=== PATIENT | female | born 1945 | race Caucasian/White ===

== ENCOUNTER 2016-04-15 01:14 | Day surgery (SDC) | payer MEDICARE, OTHER ==
[2016-04-11 14:03] VITALS: BP 129/73
[2016-04-11 15:03] LABS: BASOPHIL % 0.6 % (0.0-0.2); EOSINOPHIL # 0.3 10^3/uL (0.0-0.2); LYMPHOCYTES # 2.3 10^3/uL (1.0-4.8); LYMPHOCYTES % 31.4 % (24.0-44.0); MEAN CELL HGB 29.3 pg (26-34); MEAN CELL HGB CONCENTRATION 32.2 g/dL (33-37); MEAN CORP VOLUME 91.2 fL (78-100); MEAN PLATELET VOLUME 9.1 fL (7.8-11.0); MONOCYTES # 0.7 10^3/uL (0.3-0.8); MONOCYTES % 9.7 % (5.0-12.0); NEUTROPHIL # 3.9 10^3/uL (1.8-7.7); RED CELL DISTRIBUTION WIDTH 12.9 % (11.5-14.5); WHITE BLOOD CELL 7.3 10^3/uL (4.5-11.0)
[2016-04-11 15:16] LABS: CALCIUM 8.4 mg/dL (8.4-10.5); CARBON DIOXIDE 25.9 mmol/L (20.0-32); GLUCOSE 127 mg/dL (70-110)
--- NOTE | 2016-04-11 15:35 | DIREP ---
PROCEDURE:CHEST 2 VIEWS COMPARISON:None. INDICATIONS:PRE-OP HEART CATH FINDINGS: LUNGS/PLEURA:No significant pulmonary parenchymal abnormalities. No effusions. VASCULATURE:Normal. Unremarkable pulmonary vasculature. CARDIAC:Normal. No cardiac silhouette abnormality or cardiomegaly. MEDIASTINUM:Normal. No visible mass or adenopathy. BONES:Mild spondylosis of the thoracic spine OTHER:Negative. CONCLUSION:Normal examination. Dictated by: Jazmin Rojo M.D. on 04/11/2016 at 02:58 PM
[~2016-04-15] VITALS: Ht 152.4 cm; Wt 68.0 kg
[2016-04-15] VITALS (14 sets, daily range): BP systolic 140–163; BP diastolic 64–88
[~2016-04-15 01:14] MED LIST: ASCO500S2 PO; CITA20TA9 PO; GARL500C PO; LOSA50TA6 PO; ONDA4TAB10 SL; THYR130T2 PO; TURM500C9 PO; VIT1CAPS7 PO; [UNRECOGNIZED DRUG - CODE] PO
[2016-04-15] MEDS ORDERED: BENADRYL PO ONE ×2 (06:00→07:50)
[2016-04-15] MEDS ORDERED: NITROGLYCERIN 25MG/D5W 250ML 250 ML IV ONE (06:55)
[2016-04-15] MEDS ORDERED: LIDOCAINE 2% VIAL ONE (06:55)
[2016-04-15] MEDS ORDERED: CALAN ONE (06:55)
[2016-04-15] MEDS ORDERED: HEPARIN ONE (08:28)
[2016-04-15] MEDS ORDERED: SUBLIMAZE ONE (08:28)
[2016-04-15] MEDS ORDERED: NS 1000ML 1,000 ML ONE (08:29)
[2016-04-15] MEDS ORDERED: VERSED ONE (08:29)
[2016-04-15] MEDS ORDERED: SOLU-MEDROL ONE (08:36)
[2016-04-15] MEDS ORDERED: BENADRYL ONE (08:36)
[2016-04-15] MEDS ORDERED: NS 1000ML 1,000 ML IV SCH (09:19)
[2016-04-15] MEDS ORDERED: NORCO 5MG PO PRN (09:30)
--- NOTE | 2016-04-15 14:46 | [facility] ---
DATE OF SERVICE: 04/15/2016 PROCEDURES PERFORMED: 1. Left heart catheterization via right radial artery access. 2. Selective coronary angiography, left and right. 3. Left ventricular end diastolic pressure measurement. 4. Left ventriculography. COMPLICATIONS: None. BLOOD LOSS: Minimal, less than 20 mL. INDICATIONS AND PREOPERATIVE DIAGNOSES: 1. Severe LV dysfunction. 2. Class 2-3 angina. 3. Abnormal stress test performed on 04/10/2016 4. Moderate to severe MR. HISTORY OF PRESENT ILLNESS: The patient is a 71-year-old lady with history of hypertension and hyperlipidemia, developed new onset chest pain and worsening shortness of breath. She is known to have a mild degree of mitral regurgitation. Further examination with an echocardiogram showed worsening MR and LV dysfunction, estimated by echo to be around 30-35%. A stress test was performed on 04/10/2016 for worsening shortness of breath to rule out any ischemic component for the symptoms, which was abnormal with findings of transient ischemic dilatation, large anteroapical and anteroseptal perfusion defects with reversibility and LV dysfunction, estimated around 30% by nuclear gated function study. The patient's symptoms of worsening shortness of breath, angina pectoris, abnormal stress test and worsening MR required further examination with coronary angiography and possible intervention. DESCRIPTION OF PROCEDURE: Therefore, the patient presented to the Nurse Care Manager in a fasting condition on 04/15/2016, a proper consent was obtained and explained. All risks and benefits explained and lab results were reviewed. The patient was brought into the Nurse Care Manager in a fasting condition. Right wrist area was prepped and draped and sterilized followed by advancing a 6-Vincentian sheath in the right radial artery after 1% local analgesia with lidocaine. A 6-Vincentian [place] catheter was utilized to engage the left coronary system and JR4 guiding catheter was the guide of choice to engage the right coronary artery followed by advancing a pigtail catheter into LV cavity for left ventricular end diastolic pressure measurement and power injection LV gram in the OBRIEN projection. Careful examination of coronary angiography showed no evidence of any obstructive coronary artery lesion. At this point, the case was concluded with removal of the wires and catheters and application of TR band in the right radial artery access site for hemostasis. I have discussed the finding with the patient in details and explained all the findings to the patient and the family members in the waiting room. The patient left the Nurse Care Manager in a stable condition without any complications. HEMODYNAMICS: 1. Central aortic pressure was 176/76, mean of 118 mmHg. 2. Left ventricular end diastolic pressure was around 15 mmHg. 3. Left ventriculography showed an EF of 40% with global hypokinesia. 4. +2 to +3 MR noted. 5. There is a gradient of less than 5 mmHg across the aortic valve on pullback of the pigtail catheter. 6. Ascending aorta was tortuous, free of any acute pathology. ANGIOGRAPHIC FINDINGS: 1. Left main is a normal vessel, minimally calcified, free of disease, normal in length and diameter, bifurcates to left anterior descending artery and left circumflex artery. 2. The left anterior descending artery is a tortuous vessel, proximally free of disease. The mid segment and distal segments are small size vessel, no obstructive disease noted. The first and second and third diagonal branches are small, tortuous vessels without significant disease. 3. The circumflex artery is small, nondominant vessel with small size obtuse marginal branches. No obstructive lesion noted in the circumflex artery territory. 4. The right coronary artery is a very tortuous super dominant vessel, free of disease without obstructive lesion noted. The vessel bifurcates distally to a large size, tortuous, dominant RPDA and PLV branches. Multiple small acute marginal branches of the RCA were noted, the AV norma branch and the conus branch were medium size vessel, tortuous without significant disease. IMPRESSION: 1. Normal left main. 2. Normal LAD, medium size vessel. 3. Small nondominant circumflex artery. 4. Large, dominant, free of disease, RCA. 5. LV dysfunction, moderate in severity, EF around 40%. 6. +2 MR. 7. Normal LVEDP. 8. Minimal gradient across the aortic valve, nonpathological. 9. Well tolerated procedure without complication. RECOMMENDATIONS: 1. TR band protocol. 2. Same day discharge. 3. Optimize medical management for systolic heart failure, medical management for a valvular heart condition of mitral regurgitation. 4. Outpatient followup in 1-2 weeks. Ritu Arevalo MD DR: MARK/ibeth JOB# [id number]
[2016-04-16] MEDS ORDERED: ASPIRIN EC PO SCH (09:00)
== END 2016-04-15 12:45 | disposition home or self-care (01) ==
LOC: SDC 01:14
PROVIDERS: ATTEND Internal Medicine
DX: I20.9 Angina pectoris, unspecified (principal); I34.0 Nonrheumatic mitral (valve) insufficiency; I73.9 Peripheral vascular disease, unspecified; I10 Essential (primary) hypertension; E78.2 Mixed hyperlipidemia; I50.1 Left ventricular failure, unspecified; I50.22 Chronic systolic (congestive) heart failure
CPT/HCPCS: 36415; 71020; 80048; 85025; 85610; 93458; C1769; C1887; C1894 ×2; J1200; J1644 ×2; J2001; J2250; J2930; J3010; J3490 ×2; J7030; Q0163; Q9967

== ENCOUNTER → 2017-04-01 | Outpatient (CLI) | payer MEDICARE, OTHER ==
--- NOTE | 2017-04-03 10:08 | ECHO ---
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 FINDINGS: 1. Study quality was fair. 2. Underlying rhythm is sinus rhythm with bundle branch block. 3. Overall, EF is depressed. EF 30-35%. Inferior wall was akinetic. Septal wall was dyskinetic. The LV cavity was dilated. End-diastolic dimension was 6.3 cm. 4. Right ventricular size is increased, right ventricular EF is around 40%. 5. Both atria showed mild dilatation. 6. Thickened interatrial septum. 7. Normal septal thickness, no LVOT obstruction. 8. Mitral valve showed mild degree of mitral valve prolapse. The examination of the Doppler signal showed E to A reversal of grade 1 diastolic dysfunction. Mitral valve gradient was 2 mmHg. Therefore, no stenosis. The prolapse caused mild degree of insufficiency. 9. Aortic valve is calcified. The examination with Doppler across the valve showed a mean velocity of 1.2 m/sec, aortic valve area was 2 cm2 early stenosis with calcification is identified. 10. Mild tricuspid regurgitation. 11. No pericardial effusion. 12. Inferior vena cava was normal in size at 1.1 cm. IMPRESSION: 1. LV dysfunction, [id number]. EF was around 30-35% with dilated LV cavity LVH and global and segmental wall motion abnormality. 2. RV size with normal RVEF is mildly depressed around 45%. 2. Moderate dilatation of both atria. 3. Thickened interatrial septum. 4. Mitral valve prolapse with mild insufficiency, no stenosis. 5. Grade 1 diastolic dysfunction was seen. 6. Aortic stenosis and calcification, mild. 7. No pericardial effusion. 8. Normal IVC size. 9. Bundle branch block on sinus rhythm noted on the underlying EKG. Ritu Arevalo MD DR: MARK/ibeth JOB# [id number]
== END | disposition home or self-care (01) ==
LOC: RT 15:29
PROVIDERS: ATTEND Internal Medicine
DX: I50.1 Left ventricular failure, unspecified (principal); I34.0 Nonrheumatic mitral (valve) insufficiency; I35.0 Nonrheumatic aortic (valve) stenosis; I51.7 Cardiomegaly; I45.4 Nonspecific intraventricular block
CPT/HCPCS: 93307

== ENCOUNTER 2018-05-14 11:09 | Emergency (ER) | payer MEDICARE, OTHER ==
[~2018-05-14] VITALS: Ht 152.4 cm; Wt 68.0 kg
[~2018-05-14 11:09] MED LIST changes: +LOSA50TA14 PO; -LOSA50TA6 PO
[2018-05-14 11:28] VITALS: BP 135/65
--- NOTE | 2018-05-14 11:35 | ER.PDOC ---
General Chief Complaint: Extremities Stated Complaint: FALL,RT ELBOW INJURY Time seen by MD: 11:25 Source: patient Exam Limitations: no limitations History of Present Illness Initial Comments Pt fell 1 week ago, injured right elbow, which has a laceration and is infected Occurred: last week Recent Injury: Yes Where: other (restaurant) Severity: mild Exacerbated By: movement of Quality: swelling, tenderness (right elbow) Allergies: Coded Allergies: Influenza Virus Vaccines (Verified Allergy, Severe, Swelling, 04/11/16) adhesive tape (Verified Allergy, Severe, "STRAWBERRY BURN", 04/11/16) Penicillins (Verified Allergy, Intermediate, SWELLING , 04/10/16) shellfish derived (Verified Allergy, Unknown, 04/11/16) POSITIVE SKIN TEST REACTION Home Meds Reported Medications Turmeric Root Extract (TURMERIC) 500 Mg Capsule, 1000 MG PO HS, CAPSULE 04/11/16 Ibuprofen (IBUPROFEN) 200 Mg Tablet, 400 MG PO HS, TABLET 04/11/16 Vit C/Baltazar & Celery Ex/Grp E (TART BALTAZAR CAPSULE) 1 Each Capsule, 1 EACH PO DAILY, CAPSULE 04/11/16 Garlic (GARLIC) 500 Mg Capsule, 500 MG PO DAILY, CAPSULE 04/11/16 Ascorbic Acid (VITAMIN C) 500 Mg/5 Ml Syrup, 1 TSP PO DAILY 04/11/16 Thyroid,Pork (NATURE-THROID) 130 Mg Tablet, 130 MG PO DAILY, TABLET 04/11/16 Losartan Potassium (LOSARTAN POTASSIUM) 50 Mg Tablet, 1 TAB PO DAILY, #30 TAB 5 Refills 04/11/16 Citalopram Hydrobromide (CELEXA) 20 Mg Tablet, 1 TAB PO HS, #90 TAB 3 Refills 04/11/16 Past Medical History Medical History: congestive heart failure, hypertension, thyroid disease Surgical History: appendectomy, cholecystectomy, colon, hysterectomy, tonsillectomy, other Social History Smoking: non-smoker Alcohol Use: none Drug Use: none Review of Systems Musculoskeletal: see HPI Skin: see HPI All Other Systems: Reviewed and Negative Physical Exam General Appearance: alert, no distress Upper Extremity: tenderness, swelling (right elbow, laceration that is infected , draining) Skin: warmth, erythema Vascular: no vascular compromise Neuro/Psych: sensation nml, motor nml Central Exam: oriented X3, CN's nml as tested, nml speech, nml cognition, nml mood/affect EENT: eyes nml inspection, ENT nml inspection, pharynx nml Neck/Back: nml inspection Respiratory: no resp distress, breath sounds nml CVS: reg rate & rhythm, heart sounds nml Abdomen: non-tender, no organomegaly, nml bowels sounds Departure Time of Disposition: 12:39 Disposition: 01 HOME, SELF-CARE Impression: Primary Impression: Cellulitis Condition: Stable Patient Instructions: Cellulitis, [id number] Referrals: PCP,UNKNOWN (PCP) PRIMARY CARE PROVIDER Duration or Time Spent with Pa: 15 HARJINDER CAMILO MD May 14, 2018 11:35
--- NOTE | 2018-05-14 12:29 | DIREP ---
PROCEDURE:XRAY ELBOW 2VWS-RT COMPARISON:None. INDICATIONS:Fall, infection, pain FINDINGS: BONES:On the lateral view, there may be a small amount of air within the soft tissues, along the olecranon. No acute fracture or cortical destruction is seen. No joint effusion or loose bodies are seen. JOINTS:Normal. No displaced anterior or posterior fat pads. Mild narrowing of the joint space with articular surface sclerosis identified. SOFT TISSUES:Normal. OTHER:Normal. CONCLUSION:Air within the soft tissues at the level of olecranon. No acute fracture is seen. Dictated by: Chaitanya Arango MD on 05/14/2018 at 12:26 PM
[2018-05-14 13:18] VITALS: BP 135/65
== END 2018-05-14 13:05 | disposition home or self-care (01) ==
LOC: ER 11:09
DX: L03.113 Cellulitis of right upper limb (principal); E07.9 Disorder of thyroid, unspecified; I11.0 Hypertensive heart disease with heart failure; I50.9 Heart failure, unspecified; Z79.899 Other long term (current) drug therapy; Z88.0 Allergy status to penicillin; Z90.49 Acquired absence of other specified parts of digestive tract; Z90.710 Acquired absence of both cervix and uterus; Z88.7 Allergy status to serum and vaccine; Z91.013 Allergy to seafood; W19.XXXA Unspecified fall, initial encounter; Y93.89 Activity, other specified; Y92.511 Restaurant or cafe as the place of occurrence of the external cause; Y99.8 Other external cause status
CPT/HCPCS: 99284; 73070-RT

== ENCOUNTER → 2020-07-05 | Outpatient (CLI) | payer MEDICARE ==
[~2020-07-05] MED LIST changes: -GARL500C PO; +GARL500C2 PO; +IBUP-1856 PO; -[UNRECOGNIZED DRUG - CODE] PO
--- NOTE | 2020-07-05 15:45 | DIREP ---
PROCEDURE:XRAY ESOPHAGUS COMPARISON:None. INDICATIONS:DYSPHAGIA, TECHNIQUE:The patient swallowed barium and effervescent material under fluoroscopic observation of the esophagus and proximal stomach. Multiple spot and overhead films were obtained. FINDINGS: ESOPHAGUS:There is mild posterior impression on the cervical esophagus secondary to anterior spondylosis at the levels of C4-C5 and C5-C6 which does not impede the flow of contrast through this region. The esophagus is otherwise unremarkable in course and caliber. There is no esophageal stricturing. No gross mucosal abnormality is identified. No significant esophageal dysmotility. STOMACH:Small sliding-type hiatal hernia. The imaged stomach appears otherwise grossly unremarkable. Active gastroesophageal reflux was elicited with provocative maneuvers while in the supine position. FLUORO TIME: 1.1 minutes NUMBER OF IMAGES: 19 fluoroscopic series CONCLUSION: 1. Small sliding-type hiatal hernia with active gastroesophageal reflux while in the supine position. No significant esophageal dysmotility, appreciable stricturing or gross mucosal abnormality is identified. Dictated by: Alek Fishman M.D. On 07/05/2020 at 03:29 PM
--- NOTE | 2020-07-05 16:32 | DIREP ---
PROCEDURE:BONE DENSITY PERIPHERAL INDICATIONS:OSTEOPOROSIS COMPARISON:[facility], CR, BONE DENSITY PERIPHERAL, 07/20/2018, 12:28 PM. FINDINGS: Femur Proximal RIGHT femur bone mineral density (BMD) (g/cm2): 0.756 T-score : -2.0 Proximal LEFT femur bone mineral density (BMD) (g/cm2): 0.781T-score: -1.8 Lumbar Lumbar bone mineral density (BMD) (g/cm2): 0.927T-score : -2.2 Imaging- No significant findings CONCLUSION: 1. Osteopenia bilateral hips overall, osteoporosis bilateral femoral necks. (Right femoral neck T-score:-2.5 and left femoral neck T-score:-2.5). 2. Based on the [place] FRAX study, the patient's 10-year probability of a major osteoporotic fracture (clinical spine, forearm, hip or shoulder) is not provided, and the 10-year probability of a hip fracture is not provided. SUGGESTED RECOMMENDATIONS: Normal & Osteopenia:Consideration should be given to use of calcium supplementation, daily multiple vitamins and adequate exercise, as preventive measures against osteoporosis, if clinically indicated. Osteoporosis & Severe Osteoporosis:In addition to the above, consideration should be given to medical therapy against osteoporosis, if clinically indicated. Dictated by: Heladio Vaz M.D. on 07/05/2020 at 04:29 PM
== END | disposition home or self-care (01) ==
LOC: RAD 13:44
PROVIDERS: ATTEND Nurse Practitioner Family
DX: Z13.820 Encounter for screening for osteoporosis (principal); K44.9 Diaphragmatic hernia without obstruction or gangrene; K21.9 Gastro-esophageal reflux disease without esophagitis; R13.10 Dysphagia, unspecified; M85.852 Other specified disorders of bone density and structure, left thigh; M85.851 Other specified disorders of bone density and structure, right thigh
CPT/HCPCS: 74220; 77080

== ENCOUNTER 2021-04-11 11:16 | Emergency (ER) | payer OTHER, MEDICARE ==
[~2021-04-11] VITALS: Ht 152.4 cm; Wt 64.0 kg
[2021-04-11 11:41] VITALS: BP 159/79
[2021-04-11 12:02] VITALS: BP 159/79
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
[2021-04-11 12:49] LABS: MEAN CORP HGB 31.5 pg (26-34); RED CELL DISTRIBUTION WIDTH 12.6 % (11.5-14.5)
[2021-04-11 13:24] LABS: CARBON DIOXIDE 26.6 mmol/L (20.0-32)
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
--- NOTE | 2021-04-12 17:12 | PCM.EKG ---
[facility] Test Date: 2021-04-11 Test Time: 11:28:41 Pat Name: TANA HART Department: Room: Gender: F Aircraft Inspector: EDE : 1945 Requested By: FOX DEL REAL Order Number: [id number] Reading MD: Fox Del Real Measurements Intervals [place] Rate: 59 P: 4 ND: 194 QRS: -41 QRSD: 154 T: 87 QT: 468 QTc: 464 Interpretive Statements Sinus rhythm Left bundle branch block No previous ECG available for comparison Electronically Signed On 04-12-2021 19:07:55 LAB NURSE by Fox Del Real Please click the below link to view image of tracing.
== END 2021-04-11 14:46 | disposition home or self-care (01) ==
LOC: ER 11:16 → EDBD 11:16 → ER 14:46
DX: S20.211A Contusion of right front wall of thorax, initial encounter (principal); I10 Essential (primary) hypertension; E11.9 Type 2 diabetes mellitus without complications; Z79.1 Long term (current) use of non-steroidal anti-inflammatories (NSAID); Z79.899 Other long term (current) drug therapy; Z88.0 Allergy status to penicillin; Z90.49 Acquired absence of other specified parts of digestive tract; Z90.710 Acquired absence of both cervix and uterus; V49.9XXA Car occupant (driver) (passenger) injured in unspecified traffic accident, initial encounter; Y93.89 Activity, other specified; Y92.89 Other specified places as the place of occurrence of the external cause; Y99.8 Other external cause status
CPT/HCPCS: 36415; 71260; 74177; 80053; 83690; 84484; 85027; 93005; 99285; Q9965

== ENCOUNTER → 2021-06-26 | Outpatient (CLI) | payer MEDICARE ==
[2021-06-26 11:33] LABS: BASOPHIL % 0.9 % (0.0-0.2); EOSINOPHIL # 0.2 10^3/uL (0.0-0.2); LYMPHOCYTES # 1.69 10^3/uL1 (1.0-4.8); LYMPHOCYTES % 37.2 % (24.0-44.0); MEAN CORP HGB 31.5 pg (26-34); MONOCYTES # 0.4 10^3/uL (0.3-0.8); MONOCYTES % 8.6 % (5.0-12.0); NEUTROPHIL # 2.2 10^3/uL (1.8-7.7); NEUTROPHILS % 49.1 % (41.0-85.0); RED CELL DISTRIBUTION WIDTH 12.7 % (11.5-14.5)
[2021-06-26 12:41] LABS: CARBON DIOXIDE 30.1 mmol/L (20.0-32)
== END | disposition home or self-care (01) ==
LOC: LAB 11:08
PROVIDERS: ATTEND Nurse Practitioner Family
DX: I10 Essential (primary) hypertension (principal); E11.9 Type 2 diabetes mellitus without complications; E03.9 Hypothyroidism, unspecified
CPT/HCPCS: 36415; 80053; 80061; 83036; 84439; 84443; 85025

== ENCOUNTER → 2021-11-28 | Outpatient (CLI) | payer MEDICARE ==
[2021-11-28 12:16] LABS: BASOPHIL % 0.9 % (0.0-0.2); EOSINOPHIL # 0.1 10^3/uL (0.0-0.2); EOSINOPHIL % 2.6 % (0.0-5.0); LYMPHOCYTES # 1.66 10^3/uL1 (1.0-4.8); LYMPHOCYTES % 35.7 % (24.0-44.0); MEAN CORP HGB 31.7 pg (26-34); MONOCYTES # 0.5 10^3/uL (0.3-0.8); NEUTROPHIL # 2.3 10^3/uL (1.8-7.7); NEUTROPHILS % 49.8 % (41.0-85.0); PLATELET COUNT 249 10^3/uL (150-400); RED CELL DISTRIBUTION WIDTH 11.8 % (11.5-14.5)
[2021-11-28 12:47] LABS: CARBON DIOXIDE 28.4 mmol/L (20.0-32)
== END | disposition home or self-care (01) ==
LOC: LAB 11:57
PROVIDERS: ATTEND Nurse Practitioner Family
DX: E11.9 Type 2 diabetes mellitus without complications (principal); I10 Essential (primary) hypertension
CPT/HCPCS: 36415; 80053; 80061; 83036; 84439; 84443; 85025